=== PATIENT | female | born 1995 | race Caucasian/White ===

== ENCOUNTER → 2023-09-02 07:48 | Outpatient (BNVA) | payer MEDICAID, SELFPAY | PROVIDERS: Family Provider Obstetrics & Gynecology; Visit Provider Nurse Practitioner Women's Health | DX: N92.6 Irregular menstruation, unspecified (principal) | CPT/HCPCS: 81025 ==

== ENCOUNTER → 2023-09-22 13:02 | Outpatient (BNVA) | payer MEDICAID, SELFPAY | PROVIDERS: Family Provider Obstetrics & Gynecology; Visit Provider Nurse Practitioner Women's Health | DX: N92.6 Irregular menstruation, unspecified (principal) | CPT/HCPCS: 76801; 81000; 86787; 86850; 86900 ==

== ENCOUNTER → 2023-10-07 08:02 | Outpatient (BNVA) | payer MEDICAID, SELFPAY | PROVIDERS: Family Provider Obstetrics & Gynecology; Visit Provider Obstetrics & Gynecology | DX: Z34.80 Encounter for supervision of other normal pregnancy, unspecified trimester (principal) | CPT/HCPCS: 80307; 81000; 85025; 86592; 86762; 86803; 86850; 86900; 87077; 87086; 87184; 87340; 87491; 87591; 87806 ==

== ENCOUNTER 2023-10-18 09:41 | Emergency (ER) | payer MEDICAID, SELFPAY ==
[2023-10-18 09:45] VITALS: BP 128/79; PULSE 94; RESP 16; TEMP 36.9; O2SAT 99
[2023-10-18 11:11] VITALS: BP 130/79; PULSE 66; RESP 18; O2SAT 99
--- NOTE | 2023-10-18 11:16 | US_ITS ---
WS: [id number] EARLY OBSTETRICAL ULTRASOUND (<14 WEEKS). HISTORY: bleeding COMPARISON: 09/22/2023. Transabdominal and transvaginal imaging is submitted. There is an intrauterine gestational sac. In th e dependent portion of the gestational sac is a pole without cardiac activity. pole measu res 2.1 cm corresponding to a gestation of 8 weeks and 5 days. age on the prior ultrasound was 8 weeks and 3 days. The gestational sac is irregular. There is a small amount of blood along the endo cervical canal. No adnexal masses. Neither adnexa is well imaged. US/US OB <= 14 weeks fetus [id number] IMPRESSION: 1. Embryonic demise. No cardiac activity is identified. 2. pole crown-rump length corresponds with a gestation of 8 weeks and 5 days. Embryo has not significantly increased in size since 09/22/2023.
--- NOTE | 2023-10-18 11:22 | ED_ITS ---
Documented by User: MALLORY Coleman 10/18/23 12:30 HPI - Female Genitourinary 2 General: Chief complaint: Urogenital-Female Stated complaint: 11 weeks preg, vaginal bleeding Time Seen by Provider: 10/18/23 09:45 Source: patient Mode of arrival: ambulatory Limitations: no limitations History of Present Illness: Patient is a 28-year-old female who presents to the emergency department complaining of vaginal bleeding onset last night around 1999. Patient is A0, currently 12 weeks and a day . Was told to present to the emergency department for evaluation from OB department. Patient has had 0 issues with her prior 4 pregnancies, all born full-term and she herself has not had any complications. She denies any blood dyscrasias. States she recently had an ultrasound that was okay, denies any recent trauma. She does note some lower abdominal cramping, but states this is not unusual. She states that the quantity of blood has been a little more than spotting, though, she can feel herself bleeding onto her pad as we speak. She denies any palpitations, syncope, or other concerning signs of blood loss anemia. She denies passing any clots and states appearance of blood is bright red. MD elicited complaint: vaginal bleeding Onset (ago): hour(s) Severity: mild Quality of pain: cramping Associated symptoms: Deny headache(s) or nausea Patient : Yes Review of Systems 2 General: Reports: 10 or more systems reviewed and unremarkable except in HPI and below Const: Denies: fever(s), chills, change in appetite, change in weight or diaphoresis ENMT: Denies: throat pain or hoarseness Card: Denies: chest pain, palpitations or lightheadedness Resp: Denies: dyspnea, productive cough or wheezing GI: Reports: GI cramping; Denies: nausea, vomiting, diarrhea, constipation, bloating, change in stool character or hematochezia : Reports: vaginal bleeding and other (Currently ); Denies: flank pain, difficulty voiding, dysuria, urinary frequency or urinary urgency Musc: Denies: neck pain or back pain Skin/Breast: Denies: rash or new lesions Neuro: Denies: headache(s) or dizziness PFSH ED 2 PFSH: Medical History Asthma diagnosed as a child; has inhaler to use prn No pertinent past medical history neghx: htn,dm,thyroid,dvt/pe PCP: None Surgical History No pertinent past surgical history Family History Grandmother Uterine cancer Denies family history of Colon cancer Ovarian cancer Prostate cancer Diabetes Heart disease Hyperlipidemia Breast cancer Hypertension Thyroid disease Stroke Physical Exam 2 Const: COMMON NORMALS: no acute distress, average body habitus, patient oriented x3, no limitations, healthy appearing, alert and well nourished G ENERAL APPEARANCE: cooperative and comfortable ORIENTATION/CONSCIOUSNESS: Yes awake HENMT: COMMON NORMALS: normocephalic, atraumatic, hearing grossly normal bilaterally, external ears normal, Normal external nose present, Normal nasal mucous membranes and turbinates present and moist oral mucous membranes HEAD & SCALP: normocephalic and atraumatic NOSE: Normal external nose present and Normal nasal mucous membranes and turbinates present EXTERNAL EAR: Yes external ears normal Eye: COMMON NORMALS: Equal, round and reactive pupils present, EOMs intact bilaterally, conjunctivae normal and normal visual estrada by confrontation C ONJUNCTIVA: Yes conjunctivae normal PUPIL: Yes Equal, round and reactive pupils present Neck/C-Spine: COMMON NORMALS: full ROM, supple, no meningeal signs and no JVD Resp: COMMON NORMALS: normal respiratory effort, No retractions, No use of accessory muscles and clear to auscultation bilaterally AUSCULTATION: clear to auscultation bilaterally, no crackles, no rales, no rhonchi and no wheezes Cardio: COMMON NORMALS: no JVD, regular rate, regular rhythm, S1 normal heart sound present, S2 normal heart sound present, No gallops present (Cardio), No clicks present (Cardio), No murmurs present (Cardio), No rub (Cardio) and Peripheral pulses 2+ throughout RATE: regular rate RHYTHM: regular rhythm HEART SOUNDS: S1 normal heart sound present and S2 normal heart sound present PERIPHERAL PULSES: Peripheral pulses 2+ throughout GI: COMMON NORMALS: Normal to inspection, nondistended, normoactive bowel sounds present, Soft to palpation, non-tender, No hepatosplenomegaly present and no masses AUSCULTATION: Yes normoactive bowel sounds PALPATION: Yes Soft to palpation, No Guarding due to palpation present (GI), No Rigid due to palpation and Yes No hepatosplenomegaly present RECTAL EXAM: deferred : COMMON NORMALS: Yes no CVA tenderness BLADDER/KIDNEY EXAM: Yes no CVA tenderness Back/Pelvis: COMMON NORMALS: no CVA tenderness Extremity: COMMON NORMALS: normal to inspection and full ROM Neuro: COMMON NORMALS: patient oriented x3, moves all extremities, no focal motor deficits and no sensory deficits noted SENSORIUM/ORIENTATION: Yes alert MENINGEAL SIGNS: Yes no meningeal signs Psych: COMMON NORMALS: mental status grossly normal, cooperative and speech normal SPEECH: Yes normal speech Skin: COMMON NORMALS: no rashes or lesions noted GENERAL SKIN EXAM: no rashes or lesions noted Course 2 Vital Signs: Vital signs: Vital Signs Temperature 98.5 F 10/18/23 09:45 Pulse Rate 68 10/18/23 12:18 Respiratory Rate 16 10/18/23 12:18 Blood Pressure 124/82 10/18/23 12:18 Pulse Oximetry 99 10/18/23 12:18 Oxygen Delivery Me thod Room Air 10/18/23 12:18 MDM - Female Medical Decision Making Patient presents for 1 day of vaginal bleeding associated with some cramping. History of 4 prior live births, this is fifth . States she is 12 weeks by last menstrual period. ultrasound reveals no cardiac activity, missed . Spoke with FINE PATCHER, Dr. Huerta, who states he will see her in the office to discuss further management. Will refer to him. Informed patient of unfortunate news, she becomes tearful however will follow-up for further management. Instructed her to control her pain with Tylenol or ibuprofen, and to return with any new or concerning symptoms. Lab Data 10/18/23 10:22 Radiology Impressions Ultrasound 10/18/23 11:16 IMPRESSION: 1. Embryonic demise. No cardiac activity is identified. 2. pole crown-rump length corresponds with a gestation of 8 weeks and 5 days. Embryo has not significantly increased in size since 09/22/2023. Laboratory Results WBC 8.24 10^3/uL (3.29-11.43) 10/18/23 10:22 RBC 4.48 10^6/uL (3.85-5.65) 10/18/23 10:22 Hgb 12.10 g/dL (11.27-16.99) 10/18/23 10:22 Hct 38.0 % (36-47) 10/18/23 10:22 MCV 84.8 fl (85-98) L 10/18/23 10:22 MCH 27.0 pg (27-33) 10/18/23 10:22 MCHC 31.8 g/dL (30-55) 10/18/23 10:22 RDW 17.6 % (12.1-15.1) H 10/18/23 10:22 Plt Count 261 10^3/cmm (157-399) 10/18/23 10:22 MPV 10.7 fL (7.4-10.4) H 10/18/23 10:22 Neut % (Auto) 55.8 % 10/18/23 10:22 Lymph % (Auto) 34.7 % 10/18/23 10:22 [place] % (Auto) 5.3 % 10/18/23 10:22 Eos % (Auto) 3.4 % 10/18/23 10:22 Baso % (Auto) 0.6 % 10/18/23 10:22 Neut # (Auto) 4.59 10^3/uL (1.8-7.7) 10/18/23 10:22 Lymph # (Auto) 2.9 10^3/uL (0.8-4.8) 10/18/23 10:22 [place] # (Auto) 0.4 10^3/uL (0.2-0.9) 10/18/23 10:22 Eos # (Auto) 0.3 10^3/uL (0.0-0.8) 10/18/23 10:22 Baso # (Auto) 0.1 10^3/uL (0.0-0.1) 10/18/23 10:22 Nucleated RBC % (auto) 0 % 10/18/23 10:22 Nucleated RBCs # 0.0 /100WBC 10/18/23 10:22 Ser , Semi-Qnt 2475.00 mIU/mL 10/18/23 10:22 All radiology interpretation(s) finalized by discharge Discharge Plan Discharge Patient Disposition: Home Clinical Impression: Missed Condition: Stable Prescriptions: No Action ferrous sulfate 325 mg (65 mg iron) tablet 325 mg PO DAILY Gummies 400 mcg-35 mg- 25 mg-5 mg tablet,chewable 1 tab PO DAILY Discharge Orders: Discharge ED (Routine); Ordered 10/18/23 Ordered By: Amador Nguyen Discharge Diet: Usual diet Discharge Activity: Increase activity as tolerated Patient Instructions: Miscarriage (ED) Activity Restrictions/Additional Instructions: Tylenol or ibuprofen for pain. Follow-up with Dr. Huerta as discussed. Return with any new or concerning symptoms. Coding Level of Care Code ED Value Analyst for Chg Fwd Documented by User: Homar Peralta DO 10/18/23 13:39 HPI - Female Genitourinary 2 General: Chief complaint: Urogenital-Female Stated complaint: 11 weeks preg, vaginal bleeding Time Seen by Provider: 10/18/23 09:45 PFSH ED 2 PFSH: Medical History Asthma diagnosed as a child; has inhaler to use prn No pertinent past medical history neghx: htn,dm,thyroid,dvt/pe PCP: None Surgical History No pertinent past surgical history Family History Grandmother Uterine cancer Denies family history of Colon cancer Ovarian cancer Prostate cancer Diabetes Heart disease Hyperlipidemia Breast cancer Hypertension Thyroid disease Stroke Course 2 Vital Signs: Vital signs: Vital Signs Temperature 98.5 F 10/18/23 09:45 Pulse Rate 68 10/18/23 12:18 Respiratory Rate 16 10/18/23 12:18 Blood Pressure 124/82 10/18/23 12:18 Pulse Oximetry 99 10/18/23 12:18 Oxygen Delivery Me thod Room Air 10/18/23 12:18 MDM - Female Medical Decision Making Patient presents for 1 day of vaginal bleeding associated with some cramping. History of 4 prior live births, this is fifth . States she is 12 weeks by last menstrual period. ultrasound reveals no cardiac activity, missed . Spoke with FINE PATCHER, Dr. Huerta, who states he will see her in the office to discuss further management. Will refer to him. Informed patient of unfortunate news, she becomes tearful however will follow-up for further management. Instructed her to control her pain with Tylenol or ibuprofen, and to return with any new or concerning symptoms. Chart reviewed and patient discussed with midlevel. Agree with assessment and plan. Lab Data 10/18/23 10:22 Radiology Impressions Ultrasound 10/18/23 11:16 IMPRESSION: 1. Embryonic demise. No cardiac activity is identified. 2. pole crown-rump length corresponds with a gestation of 8 weeks and 5 days. Embryo has not significantly increased in size since 09/22/2023. Laboratory Results WBC 8.24 10^3/uL (3.29-11.43) 10/18/23 10:22 RBC 4.48 10^6/uL (3.85-5.65) 10/18/23 10:22 Hgb 12.10 g/dL (11.27-16.99) 10/18/23 10:22 Hct 38.0 % (36-47) 10/18/23 10:22 MCV 84.8 fl (85-98) L 10/18/23 10:22 MCH 27.0 pg (27-33) 10/18/23 10:22 MCHC 31.8 g/dL (30-55) 10/18/23 10:22 RDW 17.6 % (12.1-15.1) H 10/18/23 10:22 Plt Count 261 10^3/cmm (157-399) 10/18/23 10:22 MPV 10.7 fL (7.4-10.4) H 10/18/23 10:22 Neut % (Auto) 55.8 % 10/18/23 10:22 Lymph % (Auto) 34.7 % 10/18/23 10:22 [place] % (Auto) 5.3 % 10/18/23 10:22 Eos % (Auto) 3.4 % 10/18/23 10:22 Baso % (Auto) 0.6 % 10/18/23 10:22 Neut # (Auto) 4.59 10^3/uL (1.8-7.7) 10/18/23 10:22 Lymph # (Auto) 2.9 10^3/uL (0.8-4.8) 10/18/23 10:22 [place] # (Auto) 0.4 10^3/uL (0.2-0.9) 10/18/23 10:22 Eos # (Auto) 0.3 10^3/uL (0.0-0.8) 10/18/23 10:22 Baso # (Auto) 0.1 10^3/uL (0.0-0.1) 10/18/23 10:22 Nucleated RBC % (auto) 0 % 10/18/23 10: Nucleated RBCs # 0.0 /100WBC 10/18/23 10:22 Ser , Semi-Qnt 2475.00 mIU/mL 10/18/23 10:22 Discharge Plan Discharge Patient Disposition: Home Clinical Impression: Missed Condition: Stable Prescriptions: No Action ferrous sulfate 325 mg (65 mg iron) tablet 325 mg PO DAILY Gummies 400 mcg-35 mg- 25 mg-5 mg tablet,chewable 1 tab PO DAILY Discharge Orders: Discharge ED (Routine); Ordered 10/18/23 Ordered By: Amador Nguyen Discharge Diet: Usual diet Discharge Activity: Increase activity as tolerated Patient Instructions: Miscarriage (ED) Activity Restrictions/Additional Instructions: Tylenol or ibuprofen for pain. Follow-up with Dr. Huerta as discussed. Return with any new or concerning symptoms. Coding Level of Care Code ED Value Analyst for Rene Alcaraz
[2023-10-18 11:41] LABS: Basophils # 0.1 10^3/uL (0.0-0.1); Basophils % 0.6 %; Eosinophils # 0.3 10^3/uL (0.0-0.8); Eosinophils % 3.4 %; Lymphocytes # 2.9 10^3/uL (0.8-4.8); Lymphocytes % 34.7 %; Mean Corpuscular HGB Conc 31.8 g/dL (30-55); Mean Corpuscular Volume 84.8 fl (85-98); Mean Platelet Volume 10.7 fL (7.4-10.4); Monocytes # 0.4 10^3/uL (0.2-0.9); Monocytes % 5.3 %; Neutrophils # 4.59 10^3/uL (1.8-7.7); Neutrophils % 55.8 %; Nucleated Red Blood Cells % 0 %; Platelet Count 261 10^3/cmm (157-399); Red Blood Count 4.48 10^6/uL (3.85-5.65); Red Cell Distribution Width 17.6 % (12.1-15.1); White Blood Count 8.24 10^3/uL (3.29-11.43)
[2023-10-18 12:18] VITALS: BP 124/82; PULSE 68; RESP 16; O2SAT 99
--- NOTE | 2023-10-20 13:41 | DCPLANNER ---
Message sent to OBGYN for follow up
== END 2023-10-18 12:33 | disposition home or self-care (01) ==
PROVIDERS: Family Medicine; Emergency Provider Physician Assistant
DX: O02.1 Missed abortion (principal)
CPT/HCPCS: 36415; 76801; 84702; 85025; 99284

== ENCOUNTER → 2023-10-21 11:55 | Outpatient (BNVA) | payer MEDICAID, SELFPAY | PROVIDERS: Visit Provider Obstetrics & Gynecology | DX: O02.1 Missed abortion (principal); O03.9 Complete or unspecified spontaneous abortion without complication | CPT/HCPCS: 84702 ==

== ENCOUNTER → 2023-10-27 08:35 | Outpatient (BNVA) | payer MEDICAID, SELFPAY | PROVIDERS: Visit Provider Obstetrics & Gynecology | DX: O03.9 Complete or unspecified spontaneous abortion without complication (principal) | CPT/HCPCS: 76830 ==

== ENCOUNTER → 2023-10-29 11:30 | Outpatient (BNVA) | payer MEDICAID, SELFPAY | PROVIDERS: Visit Provider Obstetrics & Gynecology | DX: O03.9 Complete or unspecified spontaneous abortion without complication (principal) | CPT/HCPCS: 84702 ==

== ENCOUNTER → 2025-04-05 10:42 | Outpatient (BNVA) | payer OTHER, MEDICAID, SELFPAY | PROVIDERS: PCP Nurse Practitioner Family; Visit Provider Nurse Practitioner Family | DX: N92.1 Excessive and frequent menstruation with irregular cycle (principal); E78.5 Hyperlipidemia, unspecified; R53.83 Other fatigue; I10 Essential (primary) hypertension | CPT/HCPCS: 80053; 80061; 84439; 84443; 84481; 85025 ==

== ENCOUNTER → 2025-05-02 08:37 | Outpatient (BNVA) | payer MEDICAID, SELFPAY | PROVIDERS: PCP Nurse Practitioner Family; Visit Provider Nurse Practitioner Family | DX: N92.6 Irregular menstruation, unspecified (principal); N39.0 Urinary tract infection, site not specified | CPT/HCPCS: 81000; 81025; 87086 ==